=== PATIENT | female | born 1980 | race Caucasian/White ===

== ENCOUNTER → 2019-12-21 | Outpatient (CLI) | payer MEDICAID | LOC: RDC 14:02 | PROVIDERS: ATTEND Nurse Practitioner Family | DX: Z53.9 Procedure and treatment not carried out, unspecified reason (principal) ==

== ENCOUNTER 2020-04-01 07:44 | Emergency (ER) | payer SELFPAY ==
[2020-04-01] MEDS ORDERED: ONDANSETRON 4 MG TAB.RAPDIS PO ONE (09:52)
--- NOTE | 2020-04-01 09:55 | ER Document Report ---
ED General - General Chief Complaint: Nausea/Vomiting Stated Complaint: FEVER,VOMITTING Time Seen by Provider: 04/01/20 09:29 Primary Care Provider: KELLI MC [NO LOCAL MD] - Follow up as needed Mode of Arrival: Ambulatory Information source: Patient Notes: 39-year-old female presents to the emergency department with a complaint of fever, fatigue, headache, nausea and feeling poorly. She also has congestion and cough. She denies comorbidities, states her symptoms started on Wednesday and have continued. She also notes that her mother has been ill with GI symptoms and fatigue and nausea. - Related Data Allergies/Adverse Reactions: No Known Allergies Allergy (Verified 04/01/20 09:47) Past Medical History - Social History Smoking Status: Current Every Day Smoker Family History: Reviewed & Not Pertinent Review of Systems - Review of Systems Notes: Constitutional: Negative for fever. HENT: Negative for sore throat. Eyes: Negative for visual changes. Cardiovascular: Negative for chest pain. Respiratory: Negative for shortness of breath. Gastrointestinal: Negative for abdominal pain, vomiting or diarrhea. Genitourinary: Negative for dysuria. Musculoskeletal: Negative for back pain. Skin: Negative for rash. Neurological: Negative for headaches, weakness or numbness. 10 point ROS negative except as marked above and in HPI. Physical Exam - Vital signs Vitals: Temp Pulse Resp BP Pulse Ox 97.6 F 92 16 109/80 98 04/01/20 07:59 04/01/20 07:59 04/01/20 07:59 04/01/20 07:59 04/01/20 07:59 - Notes Notes: PHYSICAL EXAMINATION: Physical Exam: General: Well-nourished well-developed 39-year-old woman in no acute distress HEENT: NC/AT, pupils equal round and reactive to light, MM moist,nares clear, oropharynx clear, airway patent Neck: supple, no adenopathy, no masses. Good range of motion Lungs: clear, no wheezing, no rales no rhonchi CVS: Regular rate and rhythm no murmur gallop or rub Abdomen: Soft, active, nontender, no masses, no hepatosplenomegaly Ext: No edema, clubbing or cyanosis. Neuro: Alert and responsive, moving all 4 extremities on command, cranial nerves intact, no focal findings Skin: Intact no open lesions, no rash Course - Re-evaluation Re-evalutation: 04/01/20 17:30 39-year-old woman who presents to the emergency department with fever, nausea vomiting and diarrhea. She has also noted muscle aches and pains with fatigue and has specifically come to the emergency department with concerns regarding the coronavirus. Her mother has had similar symptoms. She was given Zofran with resolution of the nausea and able to take oral fluids well. She has been made a person of interest, instructions were given to self quarantine until she receives the results of the testing. Patient understands this plan and is being discharged home with a prescription for Zofran. - Vital Signs Vital signs: Temp Pulse Resp BP Pulse Ox 97.8 F 98 16 105/80 100 04/01/20 12:09 04/01/20 12:09 04/01/20 12:09 04/01/20 12:09 04/01/20 12:09 - Diagnostic Test Radiology reviewed: Image reviewed, Reports reviewed Radiology results interpreted by me: 04/01/20 17:32 Chest x-ray 1 view: No acute cardiopulmonary findings. Discharge - Discharge Clinical Impression: Suspected 2019 novel coronavirus infection Condition: Good Disposition: HOME, SELF-CARE Instructions: COVID-19 Guidance for Persons Under Investigation Additional Instructions: You may use Zofran for nausea, push fluids, use Tylenol or ibuprofen for pain or fever. Prescriptions: Ondansetron [Zofran Odt 4 mg Tablet] 1 - 2 tab PO Q4H PRN #15 tab.rapdis PRN Reason: For Nausea/Vomiting Referrals: LOCALMD,NO [NO LOCAL MD] - Follow up as needed
--- NOTE | 2020-04-01 10:26 | RADIOLOGY REPORT (SQ) ---
EXAM DESCRIPTION: CHEST SINGLE VIEW IMAGES COMPLETED DATE/TIME: 04/01/2020 10:19 am REASON FOR STUDY: sob COMPARISON: None. EXAM PARAMETERS: NUMBER OF VIEWS: One view. TECHNIQUE: Single frontal radiographic view of the chest acquired. RADIATION DOSE: NA LIMITATIONS: None. FINDINGS: LUNGS AND PLEURA: No opacities, masses or pneumothorax. No pleural effusion. MEDIASTINUM AND HILAR STRUCTURES: No masses. Contour normal. HEART AND VASCULAR STRUCTURES: Heart normal in size. Normal vasculature. BONES: No acute findings. HARDWARE: None in the chest. OTHER: No other significant finding. IMPRESSION: NO ACUTE RADIOGRAPHIC FINDING IN THE CHEST. TECHNICAL DOCUMENTATION: JOB ID: [id number] 2010 [employer]- All Rights Reserved Reading location - IP/workstation name: [email or web address]
[2020-04-01 12:12] VITALS: BP 105/80
== END 2020-04-01 12:08 | disposition home or self-care (01) ==
LOC: ER 07:44
DX: R11.2 Nausea with vomiting, unspecified (principal); R50.9 Fever, unspecified; R53.83 Other fatigue; R51 Headache; R11.0 Nausea; R09.81 Nasal congestion; R05 Cough; Z20.828 Contact with and (suspected) exposure to other viral communicable diseases; F17.200 Nicotine dependence, unspecified, uncomplicated
CPT/HCPCS: 99283; 71045; S0119

== ENCOUNTER 2020-04-22 08:19 | Emergency (ER) | payer SELFPAY ==
[2020-04-22 10:18] LABS: ABSOLUTE EOSINOPHILS # (AUTO) 0.4 10^3/uL (0.0-0.6); ABSOLUTE LYMPHOCYTES (AUTO) 1.7 10^3/uL (0.5-4.7); ABSOLUTE MONOCYTES (AUTO) 0.6 10^3/uL (0.1-1.4); ABSOLUTE NEUT (AUTO) 3.2 10^3/uL (1.7-8.2); BASOPHILS % (AUTO) 0.5 % (0-2); EOSINOPHILS % (AUTO) 7.1 % (0-6); HEMATOCRIT 43.6 % (36.0-47.0); LYMPHOCYTES % (AUTO) 28.1 % (13-45); MEAN CORPUSCULAR HEMOGLOBIN 32.5 pg (27.0-33.4); MEAN CORPUSCULAR HGB CONC 34.4 g/dL (32.0-36.0); MEAN CORPUSCULAR VOLUME 94 fl (80-97); MONOCYTES % (AUTO) 10.2 % (3-13); PLATELET COUNT 325 10^3/uL (150-450); RED BLOOD COUNT 4.62 10^6/uL (3.72-5.28); RED CELL DISTRIBUTION WIDTH 12.9 % (11.5-14.0); SEGMENTED NEUTROPHILS % (AUTO) 54.1 % (42-78); TOTAL CELLS COUNTED % (AUTO) 100 %; WHITE BLOOD COUNT 5.9 10^3/uL (4.0-10.5)
[2020-04-22 10:27] LABS: APPEARANCE,URINE TURBID; BILIRUBIN,URINE NEGATIVE (NEGATIVE); COLOR,URINE AMBER; GLUCOSE, URINE NEGATIVE (NEGATIVE); KETONES,URINE NEGATIVE (NEGATIVE); LEUKOCYTE ESTERASE,URINE SMALL (NEGATIVE); NITRITE,URINE POSITIVE (NEGATIVE); PROTEIN,URINE 100 mg/dL (NEGATIVE); UROBILINOGEN,URINE NEGATIVE mg/dL (<2.0)
[2020-04-22] MEDS ORDERED: KETOROLAC TROMETHAMINE INJ/PF 30 MG/1 ML SDV IV ONE (10:27)
[2020-04-22] MEDS ORDERED: DEXTROSE 5%-LACTATED RINGERS 1,000 ML IV ONE (10:27)
[2020-04-22] MEDS ORDERED: ONDANSETRON HCL INJ/PF 4 MG/2 ML SDV IV ONE (10:27)
[2020-04-22 10:42] LABS: ALBUMIN 4.1 g/dL (3.5-5.0); ALKALINE PHOSPHATASE 69 U/L (38-126); ANION GAP 6 (5-19); ASPARTATE AMINO TRANSFERASE 20 U/L (14-36); BILIRUBIN,TOTAL 0.4 mg/dL (0.2-1.3); BLOOD UREA NITROGEN 4 mg/dL (7-20); CALCIUM 9.7 mg/dL (8.4-10.2); CARBON DIOXIDE 30 mmol/L (22-30); CHLORIDE 103 mmol/L (98-107); GLUCOSE 96 mg/dL (75-110); POTASSIUM 4.2 mmol/L (3.6-5.0); TOTAL PROTEIN 6.9 g/dL (6.3-8.2)
--- NOTE | 2020-04-22 11:12 | ER Document Report ---
Entered by BROOK YANG SCRIBE 04/22/20 1025 Acting as scribe for:RAFA WOODWARD MD ED GI/ - General Chief Complaint: Nausea/Vomiting/Diarrhea Stated Complaint: DIARRHEA/VOMITING/WEAKNESS Time Seen by Provider: 04/22/20 09:49 Mode of Arrival: Ambulatory Information source: Patient Notes: This 39 year old female patient presents to the emergency department with complaints of a four day history of diffuse abdominal cramping, vomiting, diarrhea, and right ear pain. She reports having a temperature of 103 F last night but she is afebrile here. She was here on 04/01/20 for the same complaints and reviewing the records it appears that she was supposed to be COVID tested but it looks like she was discharged without having the test performed. She reports that her symptoms eventually went away but came back four days ago. - Related Data Allergies/Adverse Reactions: No Known Allergies Allergy (Verified 04/01/20 09:47) Past Medical History - General Information source: Patient - Social History Smoking Status: Current Every Day Smoker Cigarette use (# per day): Yes - 1/2-1 ppd Chew tobacco use (# tins/day): No Frequency of alcohol use: None Drug Abuse: None Occupation: [email or web address] Lives with: Family Family History: Reviewed & Not Pertinent Patient has homicidal ideation: No - Medical History Medical History: Negative Past Surgical History: Reports: Hx Oral Surgery - cleft palate repair Review of Systems - Review of Systems Constitutional: See HPI, Fever - subjective EENT: See HPI, Eye pain - right Cardiovascular: No symptoms reported Respiratory: See HPI, Cough - slight cough Gastrointestinal: See HPI, Abdominal pain - cramping, Diarrhea, Nausea, Vomiting Genitourinary: No symptoms reported Female Genitourinary: Last menstrual period - began two weeks ago Musculoskeletal: No symptoms reported Skin: No symptoms reported Hematologic/Lymphatic: No symptoms reported Neurological/Psychological: No symptoms reported -: Yes All other systems reviewed and negative Physical Exam - Vital signs Vitals: Temp 97.5 F 04/22/20 09:23 - Notes Notes: Physical Exam: General: Alert, appears well. HEENT: Normocephalic. Atraumatic. PERRL. Extraocular movements intact. Oropharynx clear. Right TM is normal, left TM is retracted. Neck: Supple. Non-tender. Respiratory: No respiratory distress. Clear and equal breath sounds bilaterally. Cardiovascular: Regular rate and rhythm. Abdominal: Diffusely tender to palpation, no rebound or guarding. No distension. Normal Bowel Sounds. Back: No gross abnormalities. Extremities: Moves all four extremities. Upper extremities: Normal inspection. Normal ROM. Lower extremities: Normal inspection. No edema. Normal ROM. Neurological: Normal cognition. AAOx4. Normal speech. Psychological: Normal affect. Normal Mood. Skin: Warm. Dry. Normal color. Course - Re-evaluation Re-evalutation: 04/22/20 13:03 Patient has had 2 L IV fluid with Toradol and Zofran. She is resting comfortably. She does feel much better. The urine that was initially collected had 44 epithelial cells along with WBC clumps, bacteria, WBCs and RBCs and nitrite positive. This will be repeated now that she has been hydrated with instructions on how to obtain a proper clean-catch. 04/22/20 15:36 A repeat clean-catch urine showed 2 WBCs, 3 epi's, and 1+ bacteria The patient was evaluated during the global COVID-19 pandemic and that diagnosis was suspected/considered upon their initial presentation. Their evaluation, treatment and testing was consistent with current guidelines for patients who present with complaints or symptoms that may be related to COVID-19. - Vital Signs Vital signs: Temp Pulse Resp BP Pulse Ox 97.5 F 73 18 133/87 H 100 04/22/20 09:26 04/22/20 09:26 04/22/20 09:26 04/22/20 09:26 04/22/20 09:26 - Laboratory Result Diagrams: 04/22/20 09:39 04/22/20 09:39 Laboratory results interpreted by me: 04/22/20 04/22/20 04/22/20 09:39 09:39 09:39 Eos % (Auto) 7.1 H BUN 4 L Creatinine 0.49 L Urine Protein 100 H Urine Glucose (UA) Urine Blood LARGE H Urine Nitrite POSITIVE H Ur Leukocyte Esterase SMALL H 04/22/20 13:05 Eos % (Auto) BUN Creatinine Urine Protein Urine Glucose (UA) 150 H Urine Blood LARGE H Urine Nitrite POSITIVE H Ur Leukocyte Esterase Discharge - Discharge Clinical Impression: Viral syndrome, Encounter for laboratory testing for COVID-19 virus, Nausea, vomiting and diarrhea, Decreased appetite Condition: Stable Disposition: HOME, SELF-CARE Instructions: COVID-19 Guidance for Persons Under Investigation Additional Instructions: Viral Syndrome The physician has diagnosed a viral infection. Viruses not only cause "colds," but can cause many different symptoms including generalized aching, fever, headache, cough, diarrhea, nausea, vomiting, and fatigue. The treatment, for the most part, is simply relief of symptoms. This means that antibiotics are usually not given. Rest, fluids, pain medications and, occasionally, medication for the specific symptoms that are most bothersome will be prescribed. Use good handwashing to avoid passing the virus to others. Shared toys should be cleaned with disinfectant. Clean the toilets, sinks, and counter surfaces in bathrooms. Launder clothing in hot water. Contact the physician if you develop any new or unusual symptoms such as severe headache, stiff neck, high fever, chest pain, productive cough, or shortness of breath. You should be rechecked if you don't see marked improvement within seven to 10 days. Gastroenteritis: You most likely have gastroenteritis. This is an irritation of the stomach and intestinal tract. It's usually caused by a virus, but can also be caused by bacteria, toxins that cause food poisoning, or excessive alcohol intake. Symptoms may include fever, painful abdominal cramps, nausea, vomiting, and di arrhea. Start with small amounts (two to six ounces) of clear liquids (soft drinks, herb teas, broth, etc). Try to take fluids frequently even if you are vomiting, to prevent dehydration. When liquids are being consumed successfully, advance to small amounts of bland food (mashed potato, toast) for 6 - 12 hours. Gastroenteritis rarely requires medication. It goes away by itself. Use go od handwashing so you don't spread germs. Wash underwear in very hot water. If symptoms are severe, talk to the doctor. Call your physician if blood appears in your vomitus or stool, if vomiting lasts longer than 24 hours, if the abdominal pain worsens or becomes localized to one area, or if you develop high fever. You should take the nausea medicine as needed. Drink plenty of cool clear liquids and get plenty of rest. Take Tylenol and ibuprofen for pain and fever as needed. You should self isolate at home until you get the results back of the COVID testing. Follow-up with a local primary care provider if not improving. RETURN TO THE EMERGENCY ROOM IF ANY NEW OR WORSENING SYMPTOMS. Prescriptions: Ondansetron [Zofran Odt 4 mg Tablet] 1 - 2 tab PO Q4H PRN #14 tab.rapdis PRN Reason: I personally performed the services described in the documentation, reviewed and edited the documentation which was dictated to the scribe in my presence, and it accurately records my words and actions.
[2020-04-22] MEDS ORDERED: NORMAL SALINE 1000 ML 1,000 ML IV ONE (11:50)
[2020-04-22 14:35] LABS: APPEARANCE,URINE SLIGHTLY-CLOUDY; BILIRUBIN,URINE NEGATIVE (NEGATIVE); COLOR,URINE YELLOW; GLUCOSE, URINE 150 mg/dL (NEGATIVE); KETONES,URINE NEGATIVE (NEGATIVE); LEUKOCYTE ESTERASE,URINE NEGATIVE (NEGATIVE); NITRITE,URINE POSITIVE (NEGATIVE); PROTEIN,URINE NEGATIVE (NEGATIVE); URINE SPECIFIC GRAVITY 1.013; UROBILINOGEN,URINE NEGATIVE mg/dL (<2.0)
[2020-04-22] MEDS ORDERED: ONDANSETRON ODT 4 MG TAB (6 TAB/ER DISP) PO PRN (15:40)
[2020-04-22 15:49] VITALS: BP 125/87
== END 2020-04-22 15:55 | disposition home or self-care (01) ==
LOC: ER 08:19
DX: B34.9 Viral infection, unspecified (principal); R63.0 Anorexia; R11.2 Nausea with vomiting, unspecified; R19.7 Diarrhea, unspecified; R53.1 Weakness; R10.9 Unspecified abdominal pain; H92.01 Otalgia, right ear; R05 Cough; R50.9 Fever, unspecified; F17.210 Nicotine dependence, cigarettes, uncomplicated; Z20.828 Contact with and (suspected) exposure to other viral communicable diseases
CPT/HCPCS: 99284; 96374; 96375; 36415; 84703; 85025; 87635; 80053; 81001; J1885; J2405; J7121; J7030; C9803

== ENCOUNTER 2020-05-01 09:52 | Emergency (ER) | payer OTHER ==
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
[2020-05-01 11:59] VITALS: BP 136/94
== END 2020-05-01 11:59 | disposition home or self-care (01) ==
LOC: ER 09:52
DX: S80.02XA Contusion of left knee, initial encounter (principal); S13.9XXA Sprain of joints and ligaments of unspecified parts of neck, initial encounter; V49.9XXA Car occupant (driver) (passenger) injured in unspecified traffic accident, initial encounter; Z87.891 Personal history of nicotine dependence
CPT/HCPCS: 72050; 99284

== ENCOUNTER 2020-06-03 10:35 | Emergency (ER) | payer SELFPAY ==
--- NOTE | 2020-06-03 10:49 | ER Document Report ---
ED Medical Screen (RME) - General Chief Complaint: Fall Injury Stated Complaint: FALL BACK,HEAD PAIN Time Seen by Provider: 06/03/20 10:40 Mode of Arrival: Ambulatory Information source: Patient Notes: 39-year-old female presents to ED for complaint of falling down while sleepwalking. She states she started sleepwalking about 3 years ago when her . She states over the last couple weeks she has been doing more more frequently and she has been falling down. She states she is not on any medications for anything but she does have a headache and right back pain. She is alert oriented respirations regular nonlabored speaking in full sentences. 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 She states she smokes half pack a day rarely drinks and does not use any illicit drugs. I have greeted and performed a rapid initial assessment of this patient. A comprehensive ED assessment and evaluation of the patient, analysis of test results and completion of medical decision making process will be conducted by an additional ED providers. - Related Data Allergies/Adverse Reactions: No Known Allergies Allergy (Verified 06/03/20 10:40) Home Medications: no home medications Past Medical History - Social History Frequency of alcohol use: Rare Drug Abuse: None Past Surgical History: Reports: Hx Oral Surgery - cleft palate repair Physical Exam - Vital signs Vitals: Temp Pulse Resp BP Pulse Ox 97.4 F 117 H 20 150/101 H 98 06/03/20 10:38 06/03/20 10:38 06/03/20 10:38 06/03/20 10:38 06/03/20 10:38 Course - Vital Signs Vital signs: Temp Pulse Resp BP Pulse Ox 97.4 F 117 H 20 150/101 H 98 06/03/20 10:38 06/03/20 10:38 06/03/20 10:38 06/03/20 10:38 06/03/20 10:38
[2020-06-03 11:22] LABS: ABSOLUTE BASOPHILS # (AUTO) 0.1 10^3/uL (0.0-0.2); ABSOLUTE EOSINOPHILS # (AUTO) 0.2 10^3/uL (0.0-0.6); ABSOLUTE LYMPHOCYTES (AUTO) 1.8 10^3/uL (0.5-4.7); ABSOLUTE MONOCYTES (AUTO) 0.7 10^3/uL (0.1-1.4); BASOPHILS % (AUTO) 0.8 % (0-2); HEMOGLOBIN 13.9 g/dL (12.0-15.5); LYMPHOCYTES % (AUTO) 27.3 % (13-45); MEAN CORPUSCULAR HEMOGLOBIN 32.3 pg (27.0-33.4); MEAN CORPUSCULAR HGB CONC 34.7 g/dL (32.0-36.0); MEAN CORPUSCULAR VOLUME 93 fl (80-97); PLATELET COUNT 350 10^3/uL (150-450); RED CELL DISTRIBUTION WIDTH 12.6 % (11.5-14.0); SEGMENTED NEUTROPHILS % (AUTO) 58.9 % (42-78); TOTAL CELLS COUNTED % (AUTO) 100 %; WHITE BLOOD COUNT 6.7 10^3/uL (4.0-10.5)
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
--- NOTE | 2020-06-03 11:35 | RADIOLOGY REPORT (SQ) ---
EXAM DESCRIPTION: CT HEAD WITHOUT IMAGES COMPLETED DATE/TIME: 06/03/2020 11:20 am REASON FOR STUDY: Head injury 3 times this week COMPARISON: None. TECHNIQUE: Axial images acquired through the brain without intravenous contrast. Images reviewed wi th bone, brain and subdural windows. Additional sagittal and coronal reconstructions were generated. Images stored on PACS. All CT scanners at this facility use dose modulation, iterative reconstruction, and/or weight based d osing when appropriate to reduce radiation dose to as low as reasonably achievable (ALARA). [facility]: Dose Right [facility]: CareDose [facility]: Dose Right [facility]: Teradose 4D [facility]: [employer] RADIATION DOSE: CT Rad equipment meets quality standard of care and radiation dose reduction techniq ues were employed. CTDIvol: 53.2 mGy. DLP: 991 mGy-cm. mGy. LIMITATIONS: None. FINDINGS: VENTRICLES: Normal size and contour. CEREBRUM: No masses. No hemorrhage. No midline shift. No evidence for acute infarction. Normal gra y/white matter differentiation. No areas of low density in the white matter. CEREBELLUM: No masses. No hemorrhage. No alteration of density. No evidence for acute infarction. EXTRAAXIAL SPACES: No fluid collections. No masses. ORBITS AND GLOBE: No intra- or extraconal masses. Normal contour of globe without masses. CALVARIUM: No fracture. PARANASAL SINUSES: No fluid or mucosal thickening. SOFT TISSUES: No mass or hematoma. OTHER: No other significant finding. IMPRESSION: NORMAL BRAIN CT WITHOUT CONTRAST. EVIDENCE OF ACUTE STROKE: NO. COMMENT: Quality ID # [id number]: Final reports with documentation of one or more dose reduction techniques (e.g., Automated exposure control, adjustment of the mA and/or kV according to patient size, use of iterative reconstruction technique) TECHNICAL DOCUMENTATION: JOB ID: [id number] 2010 [employer]- All Rights Reserved Reading location - IP/workstation name: [email or web address]
[2020-06-03 12:23] VITALS: BP 147/91
== END 2020-06-03 12:28 | disposition home or self-care (01) ==
LOC: ER 10:35
DX: S00.01XA Abrasion of scalp, initial encounter (principal); W19.XXXA Unspecified fall, initial encounter; W22.03XA Walked into furniture, initial encounter; Y93.89 Activity, other specified; F51.3 Sleepwalking [somnambulism]; R20.0 Anesthesia of skin; R20.2 Paresthesia of skin; M54.5 Low back pain; F17.200 Nicotine dependence, unspecified, uncomplicated
CPT/HCPCS: 36415; 70450; 85025; 87086; 99284

== ENCOUNTER 2020-06-11 22:06 | Emergency (ER) | payer SELFPAY | END 2020-06-11 22:15 | disposition left against medical advice (07) | LOC: ER 22:06 | DX: Z53.21 Procedure and treatment not carried out due to patient leaving prior to being seen by health care provider (principal) ==